=== PATIENT | female | born 1980 | race Caucasian/White ===

== ENCOUNTER 2024-06-06 21:17 | Emergency (ER) | payer BC, SELFPAY ==
[2024-06-06 21:20] VITALS: BP 128/84
[2024-06-06 22:42] VITALS: BMI 21.7
[2024-06-06] MEDS: TORADOL 15 MG IV (23:08)
[2024-06-06 23:18] LABS: % Basophils 0.6 % (0-2); % Eosinophils 0.6 % (0-6); % Immature Granulocytes 0.4 % (0-0.5); % Lymphocytes 20.1 % (20.5-51.1); % Monocytes 7.3 % (1.7-9.3); Absolute Basophils 0.1 10^3/uL (0-0.2); Absolute Eosinophils 0.1 10^3/uL (0-0.7); Absolute Lymphocytes 1.7 10^3/uL (1.2-3.4); Absolute Monocytes 0.6 10^3/uL (0.1-0.6); Hematocrit 36.5 % (37.0-47.0); Hemoglobin 12.4 g/dL (12.0-16.0); Mean Corpuscular Hgb 28.8 pg (27.0-31.0); Mean Corpuscular Volume 84.9 fL (81.0-99.0); Mean Platelet Volume 10.6 fL (7.4-10.4); Nucleated Red Blood Cells % 0 %; Platelet Count 242 10^3/uL (130-400); Red Cell Dist. Width 11.9 % (11.5-14.5); White Blood Cell Count 8.5 10^3/uL (4.8-10.8)
--- NOTE | 2024-06-06 23:28 | ED.GENMED ---
History of Present Illness
General
Chief Complaint: Abdominal Pain
Time Seen by Provider: 06/06/24 22:24
History of Present Illness
History of Present Illness:
44-year-old female without significant past medical history presenting for upper abdominal pain. Patient reports since 4 PM she has had upper abdominal pain radiating to her back. Notes that she did have a cheese steak at lunch. Reports similar
symptoms a few weeks ago which resolved without intervention. Reports nausea without vomiting. Denies any changes in stool. Reports history of appendectomy, otherwise denies any abdominal surgeries. Denies chest pain or difficulty breathing.
Denies urinary complaints. Denies fever. Denies additional acute medical complaints.
Phy Exam
Physical Exam
Physical Exam:
General: Well-appearing, no clinical signs of dehydration, nontoxic and in no acute distress
HEENT: protecting airway
Neck: appears supple
CV: Normal heart rate
Resp: No accessory muscle use, no increased work of breathing, lungs clear to auscultation bilaterally
Abd: Soft and non-distended, reproducible tenderness to the right upper quadrant and epigastric abdomen, mild.
Extremities: No deformities, no swelling
Neuro: alert, no focal neurologic deficit
: deferred
Rectal: deferred
Psych: Normal affect
Skin: Intact
Course
Orders/Labs/Results
Orders:
Orders
06/06/24 21:19
EKG [Electrocardiogram (*1)] Urgent
Reason for Study: Abdominal Pain
EKG- Treatment ONCE
06/06/24 22:42
Urinalysis Reflex To Culture Urgent
Ketorolac [Toradol] 15 mg IV NOW STA
Test Result ONCE
US Abdomen Complete/Upper Urgent
Comment:
Reason For Exam: RUQ pain
06/06/24 23:08
Complete Blood Count/With Diff Urgent
Comprehensive Metabolic Panel Urgent
HCG, Serum Qualitative Screen Urgent
Lipase Urgent
06/07/24 00:53
CT Abd/pelvis W Iv Cont Urgent
Comment:
Reason For Exam: right sided pain
Abnormal Lab Results
06/06/24
23:08
Hct 36.5 L %
(37.0-47.0)
MPV 10.6 H fL
(7.4-10.4)
Lymphocytes % 20.1 L %
(20.5-51.1)
BUN 23 H mg/dl
(7-17)
06/06/24 23:08
06/06/24 23:08
Vital Signs
Initial and Last Documented VS:
Initial Vital Signs
Temp Pulse Resp BP Pulse Ox
97.9 F 83 15 128/84 100
06/06/24 21:20 06/06/24 21:20 06/06/24 21:20 06/06/24 21:20 06/06/24 21:20
Last Documented Vital Signs
Temp Pulse Resp BP Pulse Ox
97.9 F 83 15 128/84 98
06/06/24 21:20 06/06/24 21:20 06/06/24 21:20 06/06/24 21:20 06/06/24 22:42
MDM/Problems Addressed
MDM/Problems Addressed:
44-year-old female presenting for upper abdominal pain since 4 PM. Vital signs on arrival are normal.
On exam patient is well-appearing, no acute distress or discomfort. She is nontoxic in appearance. On abdominal exam, reproducible tenderness to the epigastric and right upper quadrant. Symptoms appear consistent with cholelithiasis versus
cholecystitis versus gastritis. Plan for laboratory analysis and ultrasound imaging. Toradol administered for pain. Patient without chest pain or difficulty breathing without concern for ACS, no ACS risk factors.
12:50 -patient's ultrasound shows mildly distended gallbladder, no additional findings of acute cholecystitis. Labs unremarkable. Patient reports that improvement of pain, however still symptomatic, so for this reason we will obtain CT imaging.
02:50 -CT shows similar findings to ultrasound, distended gallbladder with some edema. Patient remained stable, reports that her pain is improved. At this time since symptoms are from her gallbladder, however no sign of acute cholecystitis. Feel
stable for discharge with close follow-up with surgery. Strict return precautions were communicated for any worsening of symptoms and patient verbalized understanding
*Critical Care Note
Total Time (30-74mins, 75-104mins- exclusive of procedures): Not Applicable
ED Attending Note
-
Portions of this chart may have been created with voice recognition software.� Occasional wrong word or��sound alike� substitutions may have occurred due to the inherent limitations of voice recognition software.
Discharge Plan
Departure
Patient with high blood pressure during this ER visit?: No
Condition: Good
Instructions: Abdominal Pain
Prescriptions:
No Action
No Current Medications
0
Referrals:
David Dillard DO [Family Provider] -
Activity Restrictions/Additional Instructions:
You were seen in the emergency department for abdominal pain
You were found to have normal laboratory analysis. Your ultrasound did show a distended gallbladder, however no signs of gallbladder infection.
Please follow-up closely with your primary care physician.
Return to the emergency department for any worsening of your symptoms, or any development of chest pain, difficulty breathing, abdominal pain with persistent vomiting and inability to tolerate food or liquid by mouth (concern for dehydration),
weakness, headache or confusion, fever greater than 100.4, or any additional symptoms that are concerning to you.
Thank you for choosing [facility].
Interventions
Interventions:
*Risk Screen - Suicide Last Done: 06/06/24 21:20
*General Assessment Last Done: 06/06/24 21:20
*Neglect/Abuse Screening Last Done: 06/06/24 21:20
ED- Fall Risk Assessment Last Done: 06/06/24 22:42
CA-Lmhtkr-Xuqjlngivx Assessment Last Done: 06/06/24 22:42
Discharge Date and Time
Print Language: SLOVENIAN
[2024-06-06 23:39] LABS: ALT (SGPT) 20 U/L (0-35); AST (SGOT) 21 U/L (14-36); Albumin 4.4 g/dl (3.5-5.0); Alkaline Phosphatase 74 U/L (38-126); Blood Urea Nitrogen 23 mg/dl (7-17); Calcium 9.7 mg/dl (8.4-10.2); Carbon Dioxide 29 mmol/L (22-30); Chloride 102 mmol/L (98-107); Estimated Creatinine Clearance 74 ml/min; Glucose 96 mg/dl (70-99); Lipase 121 U/L (23-300); Potassium 4.2 mmol/L (3.5-5.1); Sodium 139 mmol/L (135-145); Total Bilirubin 0.2 mg/dl (0.2-1.3); Total Protein 6.9 g/dl (6.3-8.2); eGFR > 60.00
[2024-06-06 23:40] LABS: HCG, Serum Qualitative Screen Negative
[2024-06-07 02:00] VITALS: BP 122/84
== END 2024-06-07 03:20 | disposition home or self-care (01) ==
LOC: EMR 21:17
PROVIDERS: EMERGENCY PHYSICIAN Student in an Organized Health Care Education/Training Program; FAMILY PHYSICIAN Family Medicine
DX: R10.10 Upper abdominal pain, unspecified (principal); Z90.49 Acquired absence of other specified parts of digestive tract
CPT/HCPCS: 99284; 96374; 74177; 76700; 80053; 83690; 84703; 85025; 93005; Q9967

== ENCOUNTER 2024-12-31 06:24 | Day surgery (SDC) | payer BC, SELFPAY ==
[2024-12-31] VITALS (11 sets, daily range): BP systolic 99–115; BP diastolic 53–68; BMI 21.0
--- NOTE | 2024-12-31 09:47 | W.SUR.PREOP ---
Pre-Operative Surgical Note
-
I have examined this patient prior to the performance of the scheduled procedure.
The patient's condition is unchanged from the time of the current History and
Physical and the patient is able to undergo the scheduled procedure.
[2024-12-31 11:09] LABS: HCG, Urine Qualitative Screen Negative
[2024-12-31] MEDS: TYLENOL 1000 MG PO (11:09)
[2024-12-31] MEDS: NORMOSOL-R/PLASMALYTE-A 1000 IV (11:17)
--- NOTE | 2024-12-31 13:21 | W.IMMPOSTOP ---
Surgical Immed Post Op Note
-
Primary Surgeon: Ramon Ramires MD
Assisting Surgeon: None
Pre-op Diagnosis: Biliary colic
Post-op Diagnosis: Same
Procedure Performed: Laparoscopic cholecystectomy with cholangiogram
Anesthesia Type: General
Specimen / Cultures: Gallbladder and contents
Estimated Blood Loss: 3 cc
Complications: None
Operative Findings: Fairly normal-appearing gallbladder with some minimal adhesions from the periduodenal fat to the infundibulum of the gallbladder that was lysed with electrocautery and blunt dissection. The critical view of safety was obtained
prior to a cholangiogram which demonstrated no distal filling defects and otherwise normal biliary anatomy. The duct was ligated with two 5 mm titanium clips.
--- NOTE | 2024-12-31 13:23 | OR.RPT ---
Operative Report
Operative Report
Patient Name: Radha Graf
: 1980
Date of Operation: 12/31/2024
Preoperative Diagnosis: biliary colic
Postoperative Diagnosis: Same
Procedure(s):
Laparoscopic Cholecystectomy with Cholangiogram
Surgeon(s):
Dr. Ramires
Optical Systems Engineer(s):
KIT Oswald
Anesthesia: General
Estimated Blood Loss: 7 cc
Urine Output: None
Drains/Lines/Implants: None
Specimens:
1. Gallbladder and contents
HPI/Surgical Indications:
This is a 44-year-old female with a history of postprandial right upper quadrant pain. She underwent a CT scan which demonstrated some mild gallbladder wall thickening and pericholecystic fluid consistent with biliary disease. Exam, labs and
imaging are consistent with biliary colic. Risks/Benefits/Alternatives were discussed at length, and the patient agreed to proceed with surgery.
Operative Findings: Fairly normal-appearing gallbladder with some minimal adhesions from the periduodenal fat to the infundibulum of the gallbladder that was lysed with electrocautery and blunt dissection. The critical view of safety was obtained
prior to a cholangiogram which demonstrated no distal filling defects and otherwise normal biliary anatomy. The duct was ligated with two 5 mm titanium clips.
Procedure Description:
The patient was brought to the Operating Room and placed in the supine position with one arm tucked. Following uneventful induction of general endotracheal anesthesia, an orogastric tube was placed. The abdomen was prepped and draped in the usual
sterile fashion. A timeout was performed confirming the procedure, consent, and that IV antibiotics were infused and sequential compression devices were confirmed to be on. The abdomen was entered using an infraumbilical open Serafin technique with
a 12 mm balloon-tipped trocar. Pneumoperitoneum to 12 mmHg pressure was obtained without difficulty and we confirmed that no injury had occurred during our entry. The patient was positioned in reverse Trendelenberg and rotated with the right side
up slightly. Three (3) 5mm trocars were then placed along the right subcostal margin. A locking grasping forceps was placed on the fundus of the gallbladder where it was then retracted cephalad and to the right. There were some flimsy adhesions
between the duodenum and the infundibulum of the gallbladder which were carefully lysed with electrocautery and blunt dissection. Using appropriate grasping instruments, the peritoneum overlying the triangle of Calot was incised and extended
superiorly on both the anterior and posterior gallbladder alanis. The infundibulum was dissected off the cystic plate. The cystic triangle was dissected until a critical view of safety was achieved. The cystic artery was medialized, dissected and
controlled with 2 proximal clips and 1 distal. The cystic duct/gallbladder junction in turn was identified, dissected circumferentially and a clip was placed. A ductotomy was made and a cholangiocatheter on an Serrato clamp was inserted into the
cystic duct. A C-arm was draped and brought into the field. An intra-operative cholangiogram was performed and was noted to have:
No filling defects in the biliary tree
No significant biliary dilation
Brisk flow of contrast into the duodenum
Normal biliary anatomy
The catheter was then removed and the cystic duct was controlled with two clips. After ensuring both the artery and duct were divided, the gallbladder was freed from the liver using electrocautery. There was some spillage of bile, but no spillage
of stones. The gallbladder bed was inspected and excellent hemostasis was obtained. The gallbladder was extracted through the 12 mm trocar site using an endocatch bag. The abdomen was again irrigated and excellent hemostasis was assured. All
remaining trocars were then removed and the pneumoperitoneum was evacuated. The 12 mm trocar site was closed using 0 PDS suture. All trocar sites were closed at the skin level using 4-0 Monocryl followed by Dermabond. Overall, the patient
tolerated the procedure well and was taken to the Recovery Room postoperatively in stable condition.
I was the attending physician and performed the procedure with assistance of the PA above. The assistance of KIT Osawld was required due to the complexity of the procedure. During the procedure Sherice assisted with retraction, resection, and
closure of the wounds. I was present for all portions of the case, excluding skin closure.
Ramon Ramires MD
[2024-12-31] MEDS: ZOFRAN 4 MG IV (13:42)
[2024-12-31] MEDS: COMPAZINE 5 MG IV (14:03)
== END 2024-12-31 16:57 | disposition home or self-care (01) ==
LOC: SDS 06:24
PROVIDERS: ATTENDING PHYSICIAN Surgery
DX: K81.1 Chronic cholecystitis (principal)
CPT/HCPCS: 47563; 88304; 74300; 76000; 81025; A4300